=== PATIENT | male | born 1970 | race Caucasian/White ===

== ENCOUNTER 2017-10-28 16:17 | Emergency (ER) | payer MEDICAID ==
[~2017-10-28] VITALS: Ht 167.6 cm; Wt 81.8 kg
[2017-10-28 16:19] VITALS: BP 133/90
[2017-10-28] MEDS ORDERED: ABAC1TAB15 PO (16:31)
[2017-10-28] MEDS ORDERED: RISP1 PO (16:31)
[2017-10-28] MEDS ORDERED: DULO20CA30 PO (16:31)
[2017-10-28] MEDS ORDERED: HYDROCORTISONE 1% 1.5 GM CREAM TP ONE (16:45)
[2017-10-28] MEDS ORDERED: DiphenhydrAMINE HCL 25 MG CAPSULE PO ONE (16:45)
== END 2017-10-28 18:06 | disposition home or self-care (01) ==
LOC: EMS 16:19
DX: L98.9 Disorder of the skin and subcutaneous tissue, unspecified (principal); Z88.8 Allergy status to other drugs, medicaments and biological substances
CPT/HCPCS: 99283

== ENCOUNTER 2017-11-16 14:22 | Inpatient (IN) | payer MEDICAID ==
[~2017-11-16] VITALS: Ht 167.6 cm; Wt 81.6 kg
[~2017-11-16 14:22] MED LIST: ABAC1TAB15 PO; DULO20CA30 PO; RISP1 PO
[2017-11-16 16:03] LABS: BASOPHILS % (AUTO) 0.9 % (0.0-2.0); EOSINOPHILS % (AUTO) 1.9 % (1.0-6.0); HEMATOCRIT 42.9 % (41-53); HEMOGLOBIN 14.4 g/dL (13.5-17.5); LYMPHOCYTES # (AUTO) 1.9 K/uL (1.0-4.8); LYMPHOCYTES % (AUTO) 31.9 % (22.0-44.0); MEAN CORPUSCULAR HEMOGLOBIN 27.7 pg (26.0-34.0); MEAN CORPUSCULAR HGB CONC 33.6 G/dL (31.0-37.0); MEAN CORPUSCULAR VOLUME 83 fL (80-100); MONOCYTES # (AUTO) 0.6 K/uL (0.1-1.0); MONOCYTES % (AUTO) 9.9 % (2.0-9.0); NEUTROPHILS # (AUTO) 3.4 K/uL (1.8-7.7); NEUTROPHILS % (AUTO) 55.4 % (40.0-70.0); PLATELET COUNT (AUTO) 256 K/uL (150-450); RED CELL DISTRIBUTION WIDTH 14.5 % (11.5-14.5)
[2017-11-16 16:12] LABS: ANION GAP 10 mmol/L (8-16); CALCIUM, TOTAL 9.4 mg/dL (8.8-10.5); CARBON DIOXIDE 25 mmol/L (22-29); CHLORIDE 104 mmol/L (98-107); CREATININE 1.26 mg/dL (0.60-1.30); GLOMERULAR FILTR. RATE CALC > 60 mL/min (>60); GLUCOSE,RANDOM 94 mg/dL (70-110); SODIUM SERUM 139 mmol/L (136-145); UREA NITROGEN, BLOOD 18 mg/dL (7-18)
[2017-11-16 16:18] LABS: ALANINE AMINOTRANSFERASE 29 U/L (12-78); ALBUMIN 3.6 g/dL (3.4-5.0); ALKALINE PHOSPHATASE 74 U/L (46-116); ASPARTATE AMINOTRANSFERASE 17 U/L (15-37); BILIRUBIN,TOTAL 0.3 mg/dL (0.1-1.0); TOTAL PROTEIN, SERUM 7.6 g/dL (6.4-8.2)
[2017-11-16 16:22] LABS: AMPHET/METH SCREEN,URINE POSITIVE (NEGATIVE); BARBITURATE SCREEN, URINE NEGATIVE (NEGATIVE); BENZODIAZEPINES SCREEN,URINE NEGATIVE (NEGATIVE); CANNABINOID SCREEN,URINE NEGATIVE (NEGATIVE); COCAINE SCREEN,URINE NEGATIVE (NEGATIVE); METHADONE SCREEN, URINE NEGATIVE (NEGATIVE); OPIATE SCREEN,URINE POSITIVE (NEGATIVE)
[2017-11-16 16:24] LABS: PHENCYCLIDINE SCREEN,URINE NEGATIVE (NEGATIVE)
[2017-11-16] MEDS ORDERED: ACETAMINOPHEN 325 MG TABLET PO ONE (16:45)
[2017-11-16 17:11] LABS: LIPASE 161 U/L (73-393)
[2017-11-16] MEDS ORDERED: ZOLPIDEM TARTRATE 10 MG TABLET PO PRN (20:30)
[2017-11-16] MEDS ORDERED: OLANZapine 5 MG RAPDIS TABLET PO PRN (20:30)
[2017-11-16] MEDS ORDERED: LORazepam 2 MG TABLET PO PRN (20:30)
[2017-11-17] VITALS (9 sets, daily range): BP systolic 113–142; BP diastolic 67–101
[2017-11-17 06:00] LABS: FREE T4 (FREE THYROXINE) 0.93 ng/dL (0.76-1.46); THYROID STIMULATING HORMONE 0.21 uIU/mL (0.36-3.74)
[2017-11-17] MEDS ORDERED: PNEUMOCOCCAL VACCINE POLYVALENT 0.5 ML VIAL [PPSV23] IM ONE (10:45)
[2017-11-17] MEDS ORDERED: GuaiFENesin/D-METHORPHAN [SUGAR-FREE] 200-20MG/10 ML SYRUP UDCUP PO PRN (12:00)
[2017-11-17] MEDS ORDERED: TUBERCULIN, PURIFIED PROTEIN DERIVATIVE 5 TU/0.1 ML SYG ID ONE (12:00)
[2017-11-17] MEDS ORDERED: IBUPROFEN 600 MG TABLET PO PRN (12:00)
[2017-11-17] MEDS ORDERED: CloNIDine HCL 0.1 MG TABLET PO PRN (12:00)
[2017-11-17] MEDS ORDERED: LOPERAMIDE HCL 2 MG CAPSULE PO PRN ×2 (12:00)
[2017-11-17] MEDS ORDERED: PROMETHAZINE HCL 25 MG TABLET PO PRN (12:00)
[2017-11-17] MEDS ORDERED: HydrOXYzine PAMOATE 50 MG CAPSULE PO PRN ×2 (12:00)
[2017-11-17] MEDS ORDERED: MAG HYDROX/AL HYDROX/SIMETH ES 30 ML SUSPENSION UDCUP PO PRN ×2 (12:00)
[2017-11-17] MEDS ORDERED: MAGNESIUM HYDROXIDE SUSPENSION 30 ML UDCUP PO PRN (12:00)
[2017-11-17] MEDS ORDERED: CYANOCOBALAMIN 1,000 MCG/ML VIAL IM ONE (12:00)
[2017-11-17] MEDS ORDERED: ACETAMINOPHEN 325 MG TABLET PO PRN (12:00)
[2017-11-17] MEDS: CloNIDine HCL 0.1 MG TABLET PO SCH ×3 (12:21→21:07)
[2017-11-17] MEDS: THIAMINE HCL 100 MG TABLET PO SCH (16:16)
[2017-11-17] MEDS: ACAMPROSATE CALCIUM 333 MG DR TABLET PO SCH (16:16)
[2017-11-17] MEDS: OLANZapine 5 MG RAPDIS TABLET PO SCH (21:07)
[2017-11-18 02:50] VITALS: BP 116/76
[2017-11-18] MEDS: CloNIDine HCL 0.1 MG TABLET PO SCH ×4 (06:41→21:08)
[2017-11-18 06:50] VITALS: BP 115/74
[2017-11-18 08:20] VITALS: BP 104/68
[2017-11-18] MEDS ORDERED: FLUoxetine HCL 20 MG CAPSULE PO SCH (09:00)
[2017-11-18] MEDS: ACAMPROSATE CALCIUM 333 MG DR TABLET PO SCH ×3 (10:01→16:11)
[2017-11-18] MEDS: FOLIC ACID 1 MG TABLET PO SCH (10:02)
[2017-11-18] MEDS: MULTIVITAMINS WITH MINERALS, THERAPEUTIC TABLET PO SCH (10:02)
[2017-11-18] MEDS: THIAMINE HCL 100 MG TABLET PO SCH ×2 (10:02→16:12)
[2017-11-18 12:32] VITALS: BP 103/60
[2017-11-18 15:06] VITALS: BP 102/64
[2017-11-18 16:18] VITALS: BP 112/76
[2017-11-18] MEDS: OLANZapine 5 MG RAPDIS TABLET PO SCH (21:08)
[2017-11-19 06:30] VITALS: BP 112/72
[2017-11-19] MEDS: CloNIDine HCL 0.1 MG TABLET PO SCH ×4 (06:43→21:18)
[2017-11-19 06:44] VITALS: BP 112/72
[2017-11-19 06:45] VITALS: BP 112/62
[2017-11-19 08:23] VITALS: BP 111/64
[2017-11-19] MEDS: ACAMPROSATE CALCIUM 333 MG DR TABLET PO SCH ×3 (09:49→16:15)
[2017-11-19] MEDS: MULTIVITAMINS WITH MINERALS, THERAPEUTIC TABLET PO SCH (09:49)
[2017-11-19] MEDS: THIAMINE HCL 100 MG TABLET PO SCH ×2 (09:50→16:16)
[2017-11-19] MEDS: FOLIC ACID 1 MG TABLET PO SCH (09:50)
[2017-11-19] MEDS: BuPROPion HCL XL 150 MG ER TABLET PO SCH (09:50)
[2017-11-19 15:08] VITALS: BP 125/76
[2017-11-19 16:12] VITALS: BP 118/65
[2017-11-19] MEDS: OLANZapine 10 MG RAPDIS TABLET PO SCH (21:11)
[2017-11-20] VITALS (7 sets, daily range): BP systolic 100–116; BP diastolic 61–82
[2017-11-20] MEDS: CloNIDine HCL 0.1 MG TABLET PO SCH ×5 (06:16→21:21)
[2017-11-20] MEDS: THIAMINE HCL 100 MG TABLET PO SCH ×2 (09:02→16:35)
[2017-11-20] MEDS: MULTIVITAMINS WITH MINERALS, THERAPEUTIC TABLET PO SCH (09:02)
[2017-11-20] MEDS: ACAMPROSATE CALCIUM 333 MG DR TABLET PO SCH ×3 (09:02→17:25)
[2017-11-20] MEDS: FOLIC ACID 1 MG TABLET PO SCH (09:03)
[2017-11-20] MEDS: BuPROPion HCL XL 150 MG ER TABLET PO SCH (09:03)
[2017-11-20] MEDS: OLANZapine 10 MG RAPDIS TABLET PO SCH (21:21)
[2017-11-21 06:00] VITALS: BP 104/66
[2017-11-21] MEDS: CloNIDine HCL 0.1 MG TABLET PO SCH ×4 (07:13→20:56)
[2017-11-21 08:00] VITALS: BP 98/60
[2017-11-21] MEDS: ACAMPROSATE CALCIUM 333 MG DR TABLET PO SCH ×3 (09:31→16:51)
[2017-11-21] MEDS: MULTIVITAMINS WITH MINERALS, THERAPEUTIC TABLET PO SCH (09:31)
[2017-11-21] MEDS: FOLIC ACID 1 MG TABLET PO SCH (09:32)
[2017-11-21] MEDS: BuPROPion HCL XL 150 MG ER TABLET PO SCH (09:32)
[2017-11-21] MEDS: THIAMINE HCL 100 MG TABLET PO SCH ×2 (09:32→16:51)
[2017-11-21 16:38] VITALS: BP 109/63
[2017-11-21 18:07] LABS: HIV 1-2 SCREEN 4TH GEN W/RFLX Reactive (Non Reactive); HIV INTERPRETATION HIV-1 Positive; HIV-1 ANTIBODY(MULTISPOT) Positive (Negative); HIV-2 ANTIBODY(MULTISPOT) Negative (Negative)
[2017-11-21] MEDS: OLANZapine 10 MG RAPDIS TABLET PO SCH (20:56)
[2017-11-22] VITALS (7 sets, daily range): BP systolic 99–112; BP diastolic 55–80
[2017-11-22] MEDS: CloNIDine HCL 0.1 MG TABLET PO SCH ×4 (06:12→21:19)
[2017-11-22] MEDS: BuPROPion HCL XL 150 MG ER TABLET PO SCH (09:28)
[2017-11-22] MEDS: MULTIVITAMINS WITH MINERALS, THERAPEUTIC TABLET PO SCH (09:29)
[2017-11-22] MEDS: ACAMPROSATE CALCIUM 333 MG DR TABLET PO SCH ×3 (09:29→16:11)
[2017-11-22] MEDS: THIAMINE HCL 100 MG TABLET PO SCH ×2 (09:29→16:11)
[2017-11-22] MEDS: FOLIC ACID 1 MG TABLET PO SCH (09:29)
[2017-11-22] MEDS: OLANZapine 10 MG RAPDIS TABLET PO SCH (20:42)
[2017-11-23 01:32] VITALS: BP 107/65
[2017-11-23 04:14] VITALS: BP 107/66
[2017-11-23 05:30] VITALS: BP 107/67
[2017-11-23] MEDS: CloNIDine HCL 0.1 MG TABLET PO SCH ×4 (06:58→21:10)
[2017-11-23 08:00] VITALS: BP_SYST 103; BP_SYST 104; BP_DIAS 64
[2017-11-23] MEDS ORDERED: BUPR-93 PO (08:56)
[2017-11-23] MEDS ORDERED: OLAN10TA3 PO (08:56)
[2017-11-23] MEDS ORDERED: BuPROPion HCL XL 150 MG ER TABLET PO SCH (09:00)
[2017-11-23] MEDS: BuPROPion HCL XL 150 MG ER TABLET PO SCH (09:04)
[2017-11-23] MEDS: ACAMPROSATE CALCIUM 333 MG DR TABLET PO SCH ×3 (09:04→16:08)
[2017-11-23] MEDS: THIAMINE HCL 100 MG TABLET PO SCH ×2 (09:06→16:07)
[2017-11-23] MEDS: FOLIC ACID 1 MG TABLET PO SCH (09:06)
[2017-11-23] MEDS: MULTIVITAMINS WITH MINERALS, THERAPEUTIC TABLET PO SCH (09:06)
[2017-11-23] MEDS ORDERED: *NON-FORMULARY MED [ENTER DRUG, DOSE, FREQ IN COMMENTS] CLINICAL ONE (12:00)
[2017-11-23] MEDS: ABACAVIR SULFATE 300 MG TABLET PO SCH (16:07)
[2017-11-23] MEDS: DOLUTEGRAVIR SODIUM 50 MG TABLET PO SCH (16:07)
[2017-11-23 16:38] VITALS: BP 115/67
[2017-11-23] MEDS ORDERED: OLANZapine 10 MG TABLET PO SCH (21:00)
[2017-11-23] MEDS: OLANZapine 10 MG RAPDIS TABLET PO SCH (21:10)
[2017-11-24 05:30] VITALS: BP 109/68
[2017-11-24] MEDS: CloNIDine HCL 0.1 MG TABLET PO SCH (06:14)
[2017-11-24] MEDS: FOLIC ACID 1 MG TABLET PO SCH (08:18)
[2017-11-24] MEDS: MULTIVITAMINS WITH MINERALS, THERAPEUTIC TABLET PO SCH (08:18)
[2017-11-24] MEDS: THIAMINE HCL 100 MG TABLET PO SCH ×2 (08:18→16:35)
[2017-11-24] MEDS: DOLUTEGRAVIR SODIUM 50 MG TABLET PO SCH (08:18)
[2017-11-24] MEDS: ABACAVIR SULFATE 300 MG TABLET PO SCH (08:18)
[2017-11-24] MEDS: ACAMPROSATE CALCIUM 333 MG DR TABLET PO SCH ×3 (08:19→16:34)
[2017-11-24] MEDS: BuPROPion HCL XL 150 MG ER TABLET PO SCH (08:21)
[2017-11-24 08:35] VITALS: BP 110/77
[2017-11-24 16:13] VITALS: BP 107/67
[2017-11-24] MEDS ORDERED: ACAM333T7 PO (18:13)
[2017-11-24] MEDS ORDERED: DOLU50TA PO (18:14)
[2017-11-24] MEDS ORDERED: LAMI300T PO (18:14)
[2017-11-24] MEDS ORDERED: MULT-1239 PO (18:15)
[2017-11-24] MEDS ORDERED: FOLI1 PO (18:15)
[2017-11-24] MEDS ORDERED: THIA100T67 PO (18:15)
[2017-11-24] MEDS ORDERED: ABAC300T8 PO (18:15)
[2017-11-24] MEDS: OLANZapine 10 MG RAPDIS TABLET PO SCH (19:10)
== END 2017-11-24 19:10 | disposition home or self-care (01) | DRG 750 ==
LOC: EMS 14:22 → AHU 11-17 00:01 → B2S 11-17 14:15 → 2WR 11-19 22:11 → B2S 11-19 22:12
PROVIDERS: ADMIT Psychiatry & Neurology Psychiatry; ATTEND Psychiatry & Neurology Psychiatry
DX: F25.9 Schizoaffective disorder, unspecified (principal); R45.851 Suicidal ideations; F11.90 Opioid use, unspecified, uncomplicated; F12.90 Cannabis use, unspecified, uncomplicated; F15.90 Other stimulant use, unspecified, uncomplicated; F17.210 Nicotine dependence, cigarettes, uncomplicated; F41.9 Anxiety disorder, unspecified; R03.0 Elevated blood-pressure reading, without diagnosis of hypertension; F90.9 Attention-deficit hyperactivity disorder, unspecified type; F31.9 Bipolar disorder, unspecified; F43.10 Post-traumatic stress disorder, unspecified; Z59.0 Homelessness; Z65.3 Problems related to other legal circumstances; Z28.21 Immunization not carried out because of patient refusal; Z91.19 Patient's noncompliance with other medical treatment and regimen; Z88.8 Allergy status to other drugs, medicaments and biological substances; Z91.013 Allergy to seafood
CPT/HCPCS: 80074; 84439; 84443; 86361; 86701; 86702; 87389; 93005; 99285; G0480; J3420

== ENCOUNTER 2018-01-30 14:51 | Inpatient (IN) | payer MEDICAID ==
[~2018-01-30] VITALS: Ht 167.6 cm; Wt 85.3 kg
[~2018-01-30 14:51] MED LIST changes: -ABAC1TAB15 PO; +ABAC300T8 PO; +DOLU50TA PO; -DULO20CA30 PO; +DULO60CA44 PO; +LAMI300T PO; -RISP1 PO; +RISP1TAB89 PO
[2018-01-30 15:05] VITALS: BP 136/69
[2018-01-30] MEDS ORDERED: ZOLPIDEM TARTRATE 10 MG TABLET PO PRN (15:30)
[2018-01-30] MEDS ORDERED: HALOPERIDOL 5 MG TABLET PO PRN (15:30)
[2018-01-30] MEDS ORDERED: PNEUMOCOCCAL VACCINE POLYVALENT 0.5 ML VIAL [PPSV23] IM ONE (16:15)
[2018-01-30] MEDS: LORazepam 2 MG TABLET PO PRN (16:48)
[2018-01-30 16:59] VITALS: BP 121/100
[2018-01-30] MEDS ORDERED: ALBUTEROL SULFATE HFA 90 MCG/PUFF 8 GM INHALER IH PRN (17:15)
[2018-01-30] MEDS ORDERED: ACETAMINOPHEN 325 MG TABLET PO PRN (17:15)
[2018-01-30] MEDS ORDERED: IBUPROFEN 400 MG TABLET PO PRN (17:15)
[2018-01-30] MEDS ORDERED: ONDANSETRON HCL 4 MG TABLET PO PRN (17:15)
[2018-01-30] MEDS ORDERED: CloNIDine HCL 0.1 MG TABLET PO PRN (17:15)
[2018-01-30] MEDS ORDERED: MAGNESIUM HYDROXIDE SUSPENSION 30 ML UDCUP PO PRN (17:15)
[2018-01-30] MEDS ORDERED: DOCUSATE SODIUM 100 MG CAPSULE PO PRN (17:15)
[2018-01-30] MEDS ORDERED: NICOTINE 14 MG/24 HOUR PATCH TD PRN (17:15)
[2018-01-30] MEDS ORDERED: MAG HYDROX/AL HYDROX/SIMETH ES 30 ML SUSPENSION UDCUP PO PRN (17:15)
[2018-01-30] MEDS ORDERED: LOPERAMIDE HCL 2 MG CAPSULE PO PRN (17:15)
[2018-01-30] MEDS ORDERED: PETROLATUM,WHITE 71 GM JELLY TP PRN (17:15)
[2018-01-30] MEDS ORDERED: GuaiFENesin/D-METHORPHAN [SUGAR-FREE] 200-20MG/10 ML SYRUP UDCUP PO PRN (17:15)
[2018-01-30 18:47] VITALS: BP 145/88
[2018-01-31 06:30] VITALS: BP 134/87
[2018-01-31 08:01] VITALS: BP 123/85
[2018-01-31 09:10] LABS: BASOPHILS % (AUTO) 0.5 % (0.0-2.0); EOSINOPHILS % (AUTO) 2.7 % (1.0-6.0); HEMOGLOBIN 13.9 g/dL (13.5-17.5); LYMPHOCYTES # (AUTO) 1.7 K/uL (1.0-4.8); LYMPHOCYTES % (AUTO) 28.4 % (22.0-44.0); MEAN CORPUSCULAR HEMOGLOBIN 27.7 pg (26.0-34.0); MEAN CORPUSCULAR HGB CONC 33.9 G/dL (31.0-37.0); MEAN CORPUSCULAR VOLUME 82 fL (80-100); MONOCYTES # (AUTO) 0.5 K/uL (0.1-1.0); MONOCYTES % (AUTO) 8.5 % (2.0-9.0); NEUTROPHILS # (AUTO) 3.7 K/uL (1.8-7.7); NEUTROPHILS % (AUTO) 59.9 % (40.0-70.0); PLATELET COUNT (AUTO) 207 K/uL (150-450); RED BLOOD CELL COUNT(AUTO) 5.01 MIL/uL (4.50-5.90); RED CELL DISTRIBUTION WIDTH 14.2 % (11.5-14.5)
[2018-01-31 09:28] LABS: ALANINE AMINOTRANSFERASE 35 U/L (12-78); ALBUMIN 3.2 g/dL (3.4-5.0); ALKALINE PHOSPHATASE 60 U/L (46-116); ANION GAP 5 mmol/L (8-16); ASPARTATE AMINOTRANSFERASE 18 U/L (15-37); BILIRUBIN,TOTAL 0.2 mg/dL (0.1-1.0); CALCIUM, TOTAL 8.9 mg/dL (8.8-10.5); CARBON DIOXIDE 29 mmol/L (22-29); CHLORIDE 104 mmol/L (98-107); CHOL/HDL RATIO 3.7 (4.2-7.3); CHOLESTEROL 118 mg/dL (131-200); CREATININE 1.15 mg/dL (0.60-1.30); FREE T4 (FREE THYROXINE) 0.79 ng/dL (0.76-1.46); GLOMERULAR FILTR. RATE CALC > 60 mL/min (>60); GLUCOSE,RANDOM 96 mg/dL (70-110); HDL CHOLESTEROL 32 mg/dL (40-60); LDL CHOL (CALC.) 52 mg/dL (0-130); POTASSIUM 4.4 mmol/L (3.5-5.1); SODIUM SERUM 138 mmol/L (136-145); THYROID STIMULATING HORMONE 0.42 uIU/mL (0.36-3.74); TOTAL PROTEIN, SERUM 6.7 g/dL (6.4-8.2); TRIGLYCERIDES 172 mg/dL (15-150); UREA NITROGEN, BLOOD 14 mg/dL (7-18)
[2018-01-31] MEDS: ABACAVIR SULFATE 300 MG TABLET PO SCH (09:28)
[2018-01-31] MEDS: DOLUTEGRAVIR SODIUM 50 MG TABLET PO SCH (09:28)
[2018-01-31 09:31] LABS: HEMOGLOBIN A1C 5.7 % (4.5-6.2)
[2018-01-31 09:31] LABS: AMPHET/METH SCREEN,URINE NEGATIVE (NEGATIVE); APPEARANCE,URINE CLEAR (CLEAR); BARBITURATE SCREEN, URINE NEGATIVE (NEGATIVE); BENZODIAZEPINES SCREEN,URINE NEGATIVE (NEGATIVE); BILIRUBIN,URINE NEGATIVE (NEGATIVE); CANNABINOID SCREEN,URINE NEGATIVE (NEGATIVE); COCAINE SCREEN,URINE NEGATIVE (NEGATIVE); GLUCOSE, URINE (UA) NEGATIVE (NEGATIVE); KETONES,URINE NEGATIVE (NEGATIVE); LEUKOCYTE ESTERASE ,URINE NEGATIVE (NEGATIVE); METHADONE SCREEN, URINE NEGATIVE (NEGATIVE); NITRATE,URINE NEGATIVE (NEGATIVE); OCCULT BLOOD,URINE NEGATIVE (NEGATIVE); OPIATE SCREEN,URINE NEGATIVE (NEGATIVE); PROTEIN,URINE NEGATIVE (NEGATIVE); UROBILINOGEN,URINE 0.2 mg/dL (<=1.0)
[2018-01-31 09:32] LABS: PHENCYCLIDINE SCREEN,URINE NEGATIVE (NEGATIVE)
[2018-01-31] MEDS: DULoxetine HCL 60 MG CAPSULE PO SCH ×2 (10:43→16:00)
[2018-01-31] MEDS: LORazepam 2 MG TABLET PO PRN (16:00)
[2018-01-31 16:02] VITALS: BP 123/83
[2018-01-31] MEDS: RisperiDONE 1 MG TABLET PO SCH (20:27)
[2018-02-01 06:12] VITALS: BP 116/74
[2018-02-01] MEDS: DOLUTEGRAVIR SODIUM 50 MG TABLET PO SCH (08:49)
[2018-02-01] MEDS: ABACAVIR SULFATE 300 MG TABLET PO SCH (08:50)
[2018-02-01] MEDS: DULoxetine HCL 60 MG CAPSULE PO SCH ×2 (08:50→16:10)
[2018-02-01 08:56] VITALS: BP 115/70
[2018-02-01] MEDS: LORazepam 2 MG TABLET PO PRN (12:10)
[2018-02-01 16:04] VITALS: BP 110/80
[2018-02-01] MEDS: RisperiDONE 1 MG TABLET PO SCH (20:04)
[2018-02-02 06:11] VITALS: BP 101/71
[2018-02-02 08:03] VITALS: BP 108/60
[2018-02-02] MEDS: ABACAVIR SULFATE 300 MG TABLET PO SCH (08:43)
[2018-02-02] MEDS: DOLUTEGRAVIR SODIUM 50 MG TABLET PO SCH (08:43)
[2018-02-02] MEDS: DULoxetine HCL 60 MG CAPSULE PO SCH ×2 (08:44→16:09)
[2018-02-02 16:08] VITALS: BP 112/79
[2018-02-02] MEDS: LORazepam 2 MG TABLET PO PRN (16:23)
[2018-02-02] MEDS: RisperiDONE 1 MG TABLET PO SCH (20:01)
[2018-02-03 01:12] VITALS: BP 122/69
[2018-02-03 08:14] VITALS: BP 121/99
[2018-02-03] MEDS: ABACAVIR SULFATE 300 MG TABLET PO SCH (08:50)
[2018-02-03] MEDS: DOLUTEGRAVIR SODIUM 50 MG TABLET PO SCH (08:50)
[2018-02-03] MEDS: DULoxetine HCL 60 MG CAPSULE PO SCH ×2 (08:50→17:20)
[2018-02-03] MEDS ORDERED: PNEUMOCOCCAL VACCINE POLYVALENT 0.5 ML VIAL [PPSV23] IM ONE (10:00)
[2018-02-03 16:00] VITALS: BP 119/84
[2018-02-03] MEDS: LORazepam 2 MG TABLET PO PRN (17:47)
[2018-02-03] MEDS: RisperiDONE 1 MG TABLET PO SCH (20:16)
[2018-02-04 01:25] VITALS: BP 115/74
[2018-02-04 08:22] VITALS: BP 111/75
[2018-02-04] MEDS: DULoxetine HCL 60 MG CAPSULE PO SCH ×2 (08:52→17:09)
[2018-02-04] MEDS: BusPIRone HCL 5 MG TABLET PO SCH ×3 (08:52→17:09)
[2018-02-04] MEDS: ABACAVIR SULFATE 300 MG TABLET PO SCH (08:53)
[2018-02-04] MEDS: DOLUTEGRAVIR SODIUM 50 MG TABLET PO SCH (08:53)
[2018-02-04] MEDS: LORazepam 2 MG TABLET PO PRN (17:09)
[2018-02-04 19:27] VITALS: BP 114/79
[2018-02-04] MEDS: RisperiDONE 1 MG TABLET PO SCH (21:22)
[2018-02-05 01:41] VITALS: BP 118/76
[2018-02-05 08:51] VITALS: BP 107/62
[2018-02-05] MEDS: BusPIRone HCL 5 MG TABLET PO SCH ×2 (08:57→12:25)
[2018-02-05] MEDS: DULoxetine HCL 60 MG CAPSULE PO SCH (08:57)
[2018-02-05] MEDS: DOLUTEGRAVIR SODIUM 50 MG TABLET PO SCH (08:57)
[2018-02-05] MEDS: ABACAVIR SULFATE 300 MG TABLET PO SCH (08:58)
[2018-02-05] MEDS: LORazepam 2 MG TABLET PO PRN (11:26)
[2018-02-05] MEDS ORDERED: BUSP5TAB20 PO (13:51)
== END 2018-02-05 16:49 | disposition home or self-care (01) | DRG 751 ==
LOC: B2S 15:29
PROVIDERS: ATTEND Psychiatry & Neurology Psychiatry
DX: F33.3 Major depressive disorder, recurrent, severe with psychotic symptoms (principal); R45.851 Suicidal ideations; D72.819 Decreased white blood cell count, unspecified; F15.90 Other stimulant use, unspecified, uncomplicated; E03.9 Hypothyroidism, unspecified; E78.5 Hyperlipidemia, unspecified; F41.9 Anxiety disorder, unspecified; F12.90 Cannabis use, unspecified, uncomplicated; K59.00 Constipation, unspecified; Z59.0 Homelessness; Z91.5 Personal history of self-harm
CPT/HCPCS: 80307; 83036; 84439; 84443; 87081; 90686; 90732

== ENCOUNTER 2018-02-10 12:57 | Emergency (ER) | payer MEDICAID ==
[~2018-02-10] VITALS: Ht 172.7 cm; Wt 75.0 kg
[~2018-02-10 12:57] MED LIST changes: +BUSP5TAB20 PO
[2018-02-10] MEDS ORDERED: LORazepam 1 MG TABLET PO ONE (15:00)
[2018-02-10] MEDS ORDERED: ACETAMINOPHEN 650 MG RECTAL SUPPOSITORY PR ONE (16:15)
[2018-02-10 16:20] VITALS: BP 159/127
[2018-02-10] MEDS ORDERED: ACETAMINOPHEN 325 MG TABLET PO ONE (16:30)
== END 2018-02-10 16:37 | disposition home or self-care (01) ==
LOC: EMS 12:58
DX: I10 Essential (primary) hypertension (principal); F41.9 Anxiety disorder, unspecified; F15.10 Other stimulant abuse, uncomplicated; F31.9 Bipolar disorder, unspecified; F17.210 Nicotine dependence, cigarettes, uncomplicated; F11.90 Opioid use, unspecified, uncomplicated; Z88.8 Allergy status to other drugs, medicaments and biological substances
CPT/HCPCS: 99406